=== PATIENT | male | born 1950 | race Caucasian/White ===

== ENCOUNTER 2016-09-25 20:17 | Inpatient (IN) | payer MEDICARE, OTHER ==
[~2016-09-25 20:17] MED LIST: ANTIANXIETY MED; AUGMENTIN500 MG PO; AVELOX400 MG PO; BACTRIM DS1 TA1 PO; BLOOD PRESSURE MED; CIPRO500 M1 PO; COLACE100 M1 PO; COLACE100 MG PO; CULTURELLE1 CA1 PO; EQL FISH OIL 1,1 CA1 PO; FEOSOL1 TAB PO; GLUCOPHAGE XR500 M1 PO; HUMALOG100 U/ML SQ; HUMULIN-R100 UNITS/ IM; HYDROCODON-ACE1 EA16 PO; HYDROCORTISON28.4 G1 TOP; LANTUS100 U/ML SC; LEVEMIR100 U/ML SQ; LISINOPRIL5 MG PO; LOPRESSOR50 MG PO; LOVENOX40 MG/0.4 SQ; MIRALAX17 G1 PO; MULTIPLE VITAM1 EAC1 PO; NORCO 5/3251 TA1 NG; NOVOLIN N100 UNIT/2 SC; PERCOCET 5-3251 EACH PO; PLAVIX75 MG PO; PRAVACHOL80 M1 PO; PROMETHAZINE HCL PO; PROZAC20 M1 PO; SULFAMYLON SOL250 M1 EXT; TYLENOL325 M1 PO; TYLENOL325 M2 PO; ZESTRIL20 M2 PO; ZOCOR; ZOCOR40 MG PO
[2016-09-26 06:11] LABS: BASO % 0.1 % (0-2); EOS % 0.4 % (0-7); EOSINOPHIL ABSOLUTE COUNT 0.1 tho/cmm (0.0-0.7); HCT-HEMATOCRIT 25.2 % (36.0-53.5); HGB-HEMOGLOBIN 8.3 gm/dl (13.5-17.0); IMMATURE GRANULOCYTES PERCENT 0.4 % (0-0.3); LYMPH % 9.9 % (20-45); LYMPH ABSOLUTE COUNT 2.4 tho/cmm (0.8-4.5); MCH (MEAN CORPUSCULAR HGB) 30.9 pg (28.0-32.0); MCHC MEAN CORPUSCULAR HGB CONC 32.9 % (32.0-36.0); MCV (MEAN CELL VOLUME) 93.7 fl (82.0-96.0); MONO % 6.7 % (0-12); MONOCYTE ABSOLUTE COUNT 1.6 tho/cmm (0.0-1.2); NEUTROPHIL ABSOLUTE COUNT 20.3 tho/cmm (1.6-8.0); NEUTROPHIL-AUTOMATED 20.3 tho/cmm (1.6-8.0); NEUTROPHILS % 82.5 % (40-80); PLATELET COUNT 407 tho/cmm (150-450); RED BLOOD COUNT 2.69 mil/cmm (4.40-5.70); RED CELL DISTRIBUTION WIDTH 13.3 % (12.4-16.4); WHITE BLOOD COUNT 24.6 tho/cmm (4.0-10.0)
[2016-09-26 06:12] LABS: INR 1.5 INR (0.9-1.1)
[2016-09-26 06:29] LABS: ALB/GLOB RATIO 0.3 (0.8-2.0); ALBUMIN 1.8 g/dl (3.5-5.0); ALKALINE PHOSPHATASE 169 U/L (33-138); ALT/SGPT 19 U/L (12-78); ANION GAP 17 mmol/L (0-20); AST/SGOT 27 U/L (10-40); BILIRUBIN,TOTAL 0.7 mg/dl (0.0-1.5); BLOOD UREA NITROGEN 40 mg/dl (6-24); CARBON DIOXIDE-VENOUS 22 mmol/L (22-32); CHLORIDE 101 mmol/l (96-110); CREATININE 2.08 mg/dl (0.60-1.30); GLUCOSE 167 mg/dL (70-110); POTASSIUM 4.7 mmol/L (3.7-5.1); SODIUM 135 mmol/L (135-145); eGFR VALUE FOR BLACK 38 mL/Min
[2016-09-26 06:54] LABS: ESR-ERYTHROCYTE SED RATE >140 mm/hr (0-20)
[2016-09-26 07:11] LABS: C-REACTIVE PROTEIN 26.6 mg/dl (0-0.9)
--- NOTE | 2016-09-26 09:45 | NUR ---
DR. ARANDA ROUNDING. ADDRESSED SBP. GAVE PRN HYDRALAZINE. ALSO ORDER HALDOL PRN. GAVE NEEDED
[2016-09-26 10:29] LABS: WBC MORPHOLOGY TOXIC GRANULATION
--- NOTE | 2016-09-26 16:58 | NUR ---
AGREE WITH CHRISTIANE STUDENT NURSE CHARTING.
[2016-09-27 05:14] LABS: BASO % 0.1 % (0-2); HCT-HEMATOCRIT 24.6 % (36.0-53.5); IMMATURE GRANULOCYTES ABSOLUTE 0.11 tho/cmm (0-0.03); IMMATURE GRANULOCYTES PERCENT 0.4 % (0-0.3); LYMPH % 3.6 % (20-45); MCH (MEAN CORPUSCULAR HGB) 30.8 pg (28.0-32.0); MCHC MEAN CORPUSCULAR HGB CONC 32.5 % (32.0-36.0); MCV (MEAN CELL VOLUME) 94.6 fl (82.0-96.0); MEAN PLATELET VOLUME 9.9 cmc (9.4-12.4); MONO % 5.2 % (0-12); MONOCYTE ABSOLUTE COUNT 1.5 tho/cmm (0.0-1.2); NEUTROPHIL ABSOLUTE COUNT 25.2 tho/cmm (1.6-8.0); NEUTROPHIL-AUTOMATED 25.2 tho/cmm (1.6-8.0); NEUTROPHILS % 90.7 % (40-80); PLATELET COUNT 374 tho/cmm (150-450); RED CELL DISTRIBUTION WIDTH 13.4 % (12.4-16.4); WHITE BLOOD COUNT 27.8 tho/cmm (4.0-10.0)
[2016-09-27 05:31] LABS: ANION GAP 16 mmol/L (0-20); BLOOD UREA NITROGEN 33 mg/dl (6-24); CALCIUM 7.9 mg/dl (8.5-10.5); CARBON DIOXIDE-VENOUS 22 mmol/L (22-32); CHLORIDE 102 mmol/l (96-110); CREATININE 1.66 mg/dl (0.60-1.30); GLUCOSE 237 mg/dL (70-110); POTASSIUM 4.6 mmol/L (3.7-5.1); SODIUM 135 mmol/L (135-145); eGFR VALUE FOR BLACK 49 mL/Min
--- NOTE | 2016-09-27 06:48 | NUR ---
09/26/16 NOC SHIFT AT APPROX 2315 PT TOLD NURSE HE FELT LIKE HE WANTED TO KILL HIMSELF. PT DENIED HAVING A PLAN TO KILL HIMSELF BUT MADE IT CLEAR THAT HE FELT HE WAS THINKING ABOUT ENDING HIS OWN LIFE. IMS PAGED, SUICIDE PRECAUTIONS STARTED, PLAN TO TRANSFER TO CCU PUT IN PLACE. RODDY RAMIREZ TOLD NURSE SHE WOULD COME TO PCU TO ASSESS PT TO BE CERTAIN THIS WAS THE CORRECT DECISION FOR THIS TIME. UPON FURTHER ASSESSMENT AND DISCUSSION, PT BECAME MORE CALM AND BEGAN SPEAKING ABOUT ALL HIS FRUSTRATIONS AT THE CURRENT TIME WHEN ASKED IF HE WANTED TO HARM HIMSELF. 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 ALEC DECIDED TO KEEP PT ON PCU, AND WROTE SPECIFIC ORDERS FOR HOW TO MONITOR THE PT MORE CLOSELY AND TREAT HIS INSOMNIA. THE PT HAS SINCE BEEN MORE RELAXED AND ABLE TO SLEEP FOR APPROXIMATELY 2 HOURS.
[2016-09-28 05:45] LABS: BASO % 0.1 % (0-2); EOS % 0.1 % (0-7); HCT-HEMATOCRIT 24.1 % (36.0-53.5); HGB-HEMOGLOBIN 7.7 gm/dl (13.5-17.0); IMMATURE GRANULOCYTES ABSOLUTE 0.07 tho/cmm (0-0.03); IMMATURE GRANULOCYTES PERCENT 0.3 % (0-0.3); LYMPH ABSOLUTE COUNT 1.4 tho/cmm (0.8-4.5); MCH (MEAN CORPUSCULAR HGB) 30.4 pg (28.0-32.0); MCV (MEAN CELL VOLUME) 95.3 fl (82.0-96.0); MEAN PLATELET VOLUME 10.1 cmc (9.4-12.4); MONO % 5.5 % (0-12); MONOCYTE ABSOLUTE COUNT 1.3 tho/cmm (0.0-1.2); PLATELET COUNT 347 tho/cmm (150-450); RED BLOOD COUNT 2.53 mil/cmm (4.40-5.70); RED CELL DISTRIBUTION WIDTH 13.6 % (12.4-16.4); WHITE BLOOD COUNT 23.8 tho/cmm (4.0-10.0)
[2016-09-28 06:01] LABS: ANION GAP 13 mmol/L (0-20); BLOOD UREA NITROGEN 31 mg/dl (6-24); CALCIUM 8.1 mg/dl (8.5-10.5); CARBON DIOXIDE-VENOUS 24 mmol/L (22-32); CHLORIDE 107 mmol/l (96-110); CREATININE 1.56 mg/dl (0.60-1.30); POTASSIUM 4.3 mmol/L (3.7-5.1); SODIUM 140 mmol/L (135-145); eGFR VALUE FOR BLACK 53 mL/Min
[2016-09-28 06:05] LABS: GLUCOSE 56 mg/dL (70-110)
[2016-09-29 04:51] LABS: ANION GAP 13 mmol/L (0-20); BLOOD UREA NITROGEN 31 mg/dl (6-24); CALCIUM 7.6 mg/dl (8.5-10.5); CARBON DIOXIDE-VENOUS 23 mmol/L (22-32); CHLORIDE 107 mmol/l (96-110); CREATININE 1.51 mg/dl (0.60-1.30); POTASSIUM 4.5 mmol/L (3.7-5.1); SODIUM 138 mmol/L (135-145); eGFR VALUE FOR BLACK 55 mL/Min
[2016-09-29 05:11] LABS: BASO % 0.2 % (0-2); EOS % 0.5 % (0-7); EOSINOPHIL ABSOLUTE COUNT 0.1 tho/cmm (0.0-0.7); HGB-HEMOGLOBIN 7.3 gm/dl (13.5-17.0); IMMATURE GRANULOCYTES ABSOLUTE 0.08 tho/cmm (0-0.03); IMMATURE GRANULOCYTES PERCENT 0.4 % (0-0.3); LYMPH % 7.4 % (20-45); LYMPH ABSOLUTE COUNT 1.5 tho/cmm (0.8-4.5); MCH (MEAN CORPUSCULAR HGB) 30.8 pg (28.0-32.0); MCHC MEAN CORPUSCULAR HGB CONC 32.6 % (32.0-36.0); MCV (MEAN CELL VOLUME) 94.5 fl (82.0-96.0); MEAN PLATELET VOLUME 9.6 cmc (9.4-12.4); MONO % 7.5 % (0-12); MONOCYTE ABSOLUTE COUNT 1.5 tho/cmm (0.0-1.2); NEUTROPHIL ABSOLUTE COUNT 16.8 tho/cmm (1.6-8.0); NEUTROPHIL-AUTOMATED 16.8 tho/cmm (1.6-8.0); PLATELET COUNT 296 tho/cmm (150-450); RED BLOOD COUNT 2.37 mil/cmm (4.40-5.70); RED CELL DISTRIBUTION WIDTH 13.8 % (12.4-16.4)
[2016-09-29 05:18] LABS: GLUCOSE 151 mg/dL (70-110)
[2016-09-29 05:22] LABS: HCT-HEMATOCRIT 22.4 % (36.0-53.5)
[2016-09-30 05:46] LABS: BASO % 0.3 % (0-2); BASO ABSOLUTE COUNT 0.1 tho/cmm (0.0-0.2); EOS % 0.6 % (0-7); EOSINOPHIL ABSOLUTE COUNT 0.1 tho/cmm (0.0-0.7); HGB-HEMOGLOBIN 6.9 gm/dl (13.5-17.0); IMMATURE GRANULOCYTES ABSOLUTE 0.06 tho/cmm (0-0.03); IMMATURE GRANULOCYTES PERCENT 0.4 % (0-0.3); LYMPH % 10.3 % (20-45); LYMPH ABSOLUTE COUNT 1.7 tho/cmm (0.8-4.5); MCH (MEAN CORPUSCULAR HGB) 30.8 pg (28.0-32.0); MCV (MEAN CELL VOLUME) 95.5 fl (82.0-96.0); MEAN PLATELET VOLUME 9.5 cmc (9.4-12.4); MONO % 9.1 % (0-12); MONOCYTE ABSOLUTE COUNT 1.5 tho/cmm (0.0-1.2); NEUTROPHIL ABSOLUTE COUNT 13.1 tho/cmm (1.6-8.0); NEUTROPHIL-AUTOMATED 13.1 tho/cmm (1.6-8.0); NEUTROPHILS % 79.3 % (40-80); PLATELET COUNT 256 tho/cmm (150-450); RED BLOOD COUNT 2.24 mil/cmm (4.40-5.70); RED CELL DISTRIBUTION WIDTH 13.6 % (12.4-16.4); WHITE BLOOD COUNT 16.6 tho/cmm (4.0-10.0)
[2016-09-30 05:49] LABS: HCT-HEMATOCRIT 21.4 % (36.0-53.5); MCHC MEAN CORPUSCULAR HGB CONC 32.2 % (32.0-36.0)
[2016-10-01 04:34] LABS: BASO % 0.3 % (0-2); BASO ABSOLUTE COUNT 0.1 tho/cmm (0.0-0.2); EOS % 0.7 % (0-7); EOSINOPHIL ABSOLUTE COUNT 0.1 tho/cmm (0.0-0.7); HGB-HEMOGLOBIN 7.5 gm/dl (13.5-17.0); IMMATURE GRANULOCYTES ABSOLUTE 0.13 tho/cmm (0-0.03); IMMATURE GRANULOCYTES PERCENT 0.8 % (0-0.3); LYMPH % 10.8 % (20-45); LYMPH ABSOLUTE COUNT 1.8 tho/cmm (0.8-4.5); MCH (MEAN CORPUSCULAR HGB) 30.6 pg (28.0-32.0); MCHC MEAN CORPUSCULAR HGB CONC 32.3 % (32.0-36.0); MCV (MEAN CELL VOLUME) 94.7 fl (82.0-96.0); MEAN PLATELET VOLUME 9.6 cmc (9.4-12.4); MONO % 11.7 % (0-12); MONOCYTE ABSOLUTE COUNT 1.9 tho/cmm (0.0-1.2); NEUTROPHIL ABSOLUTE COUNT 12.6 tho/cmm (1.6-8.0); NEUTROPHIL-AUTOMATED 12.6 tho/cmm (1.6-8.0); NEUTROPHILS % 75.7 % (40-80); PLATELET COUNT 259 tho/cmm (150-450); RED BLOOD COUNT 2.45 mil/cmm (4.40-5.70); WHITE BLOOD COUNT 16.6 tho/cmm (4.0-10.0)
[2016-10-01 04:41] LABS: ANION GAP 10 mmol/L (0-20); BLOOD UREA NITROGEN 24 mg/dl (6-24); C-REACTIVE PROTEIN 14.2 mg/dl (0-0.9); CALCIUM 7.4 mg/dl (8.5-10.5); CARBON DIOXIDE-VENOUS 24 mmol/L (22-32); CHLORIDE 108 mmol/l (96-110); CREATININE 1.33 mg/dl (0.60-1.30); GLUCOSE 112 mg/dL (70-110); POTASSIUM 4.3 mmol/L (3.7-5.1); SODIUM 138 mmol/L (135-145); eGFR VALUE FOR BLACK 65 mL/Min
[2016-10-01 04:58] LABS: HCT-HEMATOCRIT 23.2 % (36.0-53.5)
[2016-10-03 04:06] LABS: INR 1.2 INR (0.9-1.1); PROTHROMBIN TIME 14.6 SECONDS (9.0-13.6)
[2016-10-03 04:27] LABS: ANION GAP 11 mmol/L (0-20); BLOOD UREA NITROGEN 23 mg/dl (6-24); CALCIUM 7.6 mg/dl (8.5-10.5); CARBON DIOXIDE-VENOUS 25 mmol/L (22-32); CHLORIDE 107 mmol/l (96-110); CREATININE 1.53 mg/dl (0.60-1.30); GLUCOSE 59 mg/dL (70-110); POTASSIUM 4.2 mmol/L (3.7-5.1); SODIUM 139 mmol/L (135-145); eGFR VALUE FOR BLACK 54 mL/Min
[2016-10-03 09:16] LABS: BODY FLUID TYPE LEFT SHOULDER
[2016-10-03 18:01] LABS: BASO % 0.3 % (0-2); EOS % 2.9 % (0-7); EOSINOPHIL ABSOLUTE COUNT 0.4 tho/cmm (0.0-0.7); HCT-HEMATOCRIT 24.3 % (36.0-53.5); HGB-HEMOGLOBIN 7.8 gm/dl (13.5-17.0); IMMATURE GRANULOCYTES ABSOLUTE 0.15 tho/cmm (0-0.03); LYMPH ABSOLUTE COUNT 2.1 tho/cmm (0.8-4.5); MCH (MEAN CORPUSCULAR HGB) 30.6 pg (28.0-32.0); MCHC MEAN CORPUSCULAR HGB CONC 32.1 % (32.0-36.0); MCV (MEAN CELL VOLUME) 95.3 fl (82.0-96.0); MEAN PLATELET VOLUME 9.3 cmc (9.4-12.4); MONO % 9.9 % (0-12); MONOCYTE ABSOLUTE COUNT 1.5 tho/cmm (0.0-1.2); NEUTROPHIL ABSOLUTE COUNT 10.8 tho/cmm (1.6-8.0); NEUTROPHIL-AUTOMATED 10.8 tho/cmm (1.6-8.0); NEUTROPHILS % 71.9 % (40-80); PLATELET COUNT 369 tho/cmm (150-450); RED BLOOD COUNT 2.55 mil/cmm (4.40-5.70); RED CELL DISTRIBUTION WIDTH 13.7 % (12.4-16.4)
[2016-10-03 18:06] LABS: INR 1.2 INR (0.9-1.1); PROTHROMBIN TIME 14.5 SECONDS (9.0-13.6)
[2016-10-04 05:15] LABS: BASO % 0.2 % (0-2); HCT-HEMATOCRIT 24.9 % (36.0-53.5); IMMATURE GRANULOCYTES ABSOLUTE 0.13 tho/cmm (0-0.03); IMMATURE GRANULOCYTES PERCENT 0.9 % (0-0.3); LYMPH ABSOLUTE COUNT 1.3 tho/cmm (0.8-4.5); MCH (MEAN CORPUSCULAR HGB) 30.5 pg (28.0-32.0); MCHC MEAN CORPUSCULAR HGB CONC 32.1 % (32.0-36.0); MEAN PLATELET VOLUME 9.7 cmc (9.4-12.4); MONOCYTE ABSOLUTE COUNT 0.6 tho/cmm (0.0-1.2); NEUTROPHIL ABSOLUTE COUNT 12.8 tho/cmm (1.6-8.0); NEUTROPHIL-AUTOMATED 12.8 tho/cmm (1.6-8.0); NEUTROPHILS % 85.9 % (40-80); PLATELET COUNT 360 tho/cmm (150-450); RED BLOOD COUNT 2.62 mil/cmm (4.40-5.70); RED CELL DISTRIBUTION WIDTH 13.6 % (12.4-16.4); WHITE BLOOD COUNT 14.9 tho/cmm (4.0-10.0)
[2016-10-04 05:24] LABS: ANION GAP 10 mmol/L (0-20); BLOOD UREA NITROGEN 19 mg/dl (6-24); C-REACTIVE PROTEIN 13.7 mg/dl (0-0.9); CALCIUM 7.7 mg/dl (8.5-10.5); CARBON DIOXIDE-VENOUS 27 mmol/L (22-32); CHLORIDE 103 mmol/l (96-110); CREATININE 1.42 mg/dl (0.60-1.30); POTASSIUM 4.9 mmol/L (3.7-5.1); SODIUM 135 mmol/L (135-145); eGFR VALUE FOR BLACK 60 mL/Min
[2016-10-04 05:39] LABS: GLUCOSE 209 mg/dL (70-110)
[2016-10-05 05:46] LABS: BASO % 0.3 % (0-2); EOS % 1.6 % (0-7); EOSINOPHIL ABSOLUTE COUNT 0.2 tho/cmm (0.0-0.7); HGB-HEMOGLOBIN 7.3 gm/dl (13.5-17.0); IMMATURE GRANULOCYTES PERCENT 0.7 % (0-0.3); LYMPH % 12.2 % (20-45); LYMPH ABSOLUTE COUNT 1.7 tho/cmm (0.8-4.5); MCH (MEAN CORPUSCULAR HGB) 30.3 pg (28.0-32.0); MCHC MEAN CORPUSCULAR HGB CONC 31.6 % (32.0-36.0); MCV (MEAN CELL VOLUME) 95.9 fl (82.0-96.0); MEAN PLATELET VOLUME 9.6 cmc (9.4-12.4); MONO % 8.8 % (0-12); MONOCYTE ABSOLUTE COUNT 1.2 tho/cmm (0.0-1.2); NEUTROPHIL ABSOLUTE COUNT 10.5 tho/cmm (1.6-8.0); NEUTROPHIL-AUTOMATED 10.5 tho/cmm (1.6-8.0); NEUTROPHILS % 76.4 % (40-80); PLATELET COUNT 380 tho/cmm (150-450); RED BLOOD COUNT 2.41 mil/cmm (4.40-5.70); RED CELL DISTRIBUTION WIDTH 13.7 % (12.4-16.4); WHITE BLOOD COUNT 13.8 tho/cmm (4.0-10.0)
[2016-10-05 05:48] LABS: HCT-HEMATOCRIT 23.1 % (36.0-53.5)
[2016-10-05 05:58] LABS: ANION GAP 12 mmol/L (0-20); BLOOD UREA NITROGEN 23 mg/dl (6-24); CALCIUM 7.6 mg/dl (8.5-10.5); CARBON DIOXIDE-VENOUS 26 mmol/L (22-32); CHLORIDE 107 mmol/l (96-110); CREATININE 1.45 mg/dl (0.60-1.30); POTASSIUM 4.4 mmol/L (3.7-5.1); SODIUM 141 mmol/L (135-145); eGFR VALUE FOR BLACK 58 mL/Min
[2016-10-05 06:03] LABS: GLUCOSE 97 mg/dL (70-110)
[2016-10-06 03:54] LABS: BASO % 0.5 % (0-2); BASO ABSOLUTE COUNT 0.1 tho/cmm (0.0-0.2); EOSINOPHIL ABSOLUTE COUNT 0.2 tho/cmm (0.0-0.7); HGB-HEMOGLOBIN 7.3 gm/dl (13.5-17.0); IMMATURE GRANULOCYTES ABSOLUTE 0.08 tho/cmm (0-0.03); IMMATURE GRANULOCYTES PERCENT 0.7 % (0-0.3); LYMPH % 18.9 % (20-45); LYMPH ABSOLUTE COUNT 2.2 tho/cmm (0.8-4.5); MCH (MEAN CORPUSCULAR HGB) 30.5 pg (28.0-32.0); MCHC MEAN CORPUSCULAR HGB CONC 31.7 % (32.0-36.0); MCV (MEAN CELL VOLUME) 96.2 fl (82.0-96.0); MEAN PLATELET VOLUME 9.7 cmc (9.4-12.4); MONO % 10.3 % (0-12); MONOCYTE ABSOLUTE COUNT 1.2 tho/cmm (0.0-1.2); NEUTROPHIL ABSOLUTE COUNT 7.9 tho/cmm (1.6-8.0); NEUTROPHIL-AUTOMATED 7.9 tho/cmm (1.6-8.0); NEUTROPHILS % 67.6 % (40-80); PLATELET COUNT 387 tho/cmm (150-450); RED BLOOD COUNT 2.39 mil/cmm (4.40-5.70); RED CELL DISTRIBUTION WIDTH 13.8 % (12.4-16.4); WHITE BLOOD COUNT 11.7 tho/cmm (4.0-10.0)
[2016-10-06 04:03] LABS: ALBUMIN 1.6 g/dl (3.5-5.0); ANION GAP 8 mmol/L (0-20); BLOOD UREA NITROGEN 20 mg/dl (6-24); CALCIUM 7.6 mg/dl (8.5-10.5); CARBON DIOXIDE-VENOUS 30 mmol/L (22-32); CHLORIDE 108 mmol/l (96-110); CREATININE 1.33 mg/dl (0.60-1.30); PHOSPHOROUS 3.4 mg/dl (2.5-4.9); SODIUM 142 mmol/L (135-145); eGFR VALUE FOR BLACK 65 mL/Min
[2016-10-06 04:04] LABS: C-REACTIVE PROTEIN 6.2 mg/dl (0-0.9)
[2016-10-06 04:06] LABS: GLUCOSE 53 mg/dL (70-110)
[2016-10-07 04:35] LABS: BASO % 0.5 % (0-2); BASO ABSOLUTE COUNT 0.1 tho/cmm (0.0-0.2); EOS % 2.9 % (0-7); EOSINOPHIL ABSOLUTE COUNT 0.4 tho/cmm (0.0-0.7); HGB-HEMOGLOBIN 6.5 gm/dl (13.5-17.0); IMMATURE GRANULOCYTES ABSOLUTE 0.07 tho/cmm (0-0.03); IMMATURE GRANULOCYTES PERCENT 0.5 % (0-0.3); LYMPH % 15.3 % (20-45); MCH (MEAN CORPUSCULAR HGB) 30.7 pg (28.0-32.0); MCV (MEAN CELL VOLUME) 96.2 fl (82.0-96.0); MEAN PLATELET VOLUME 9.6 cmc (9.4-12.4); MONO % 9.3 % (0-12); MONOCYTE ABSOLUTE COUNT 1.2 tho/cmm (0.0-1.2); NEUTROPHIL ABSOLUTE COUNT 9.4 tho/cmm (1.6-8.0); NEUTROPHIL-AUTOMATED 9.4 tho/cmm (1.6-8.0); NEUTROPHILS % 71.5 % (40-80); PLATELET COUNT 392 tho/cmm (150-450); RED BLOOD COUNT 2.12 mil/cmm (4.40-5.70); RED CELL DISTRIBUTION WIDTH 13.9 % (12.4-16.4); WHITE BLOOD COUNT 13.1 tho/cmm (4.0-10.0)
[2016-10-07 04:39] LABS: ALBUMIN 1.6 g/dl (3.5-5.0); ANION GAP 10 mmol/L (0-20); BLOOD UREA NITROGEN 16 mg/dl (6-24); C-REACTIVE PROTEIN 8.7 mg/dl (0-0.9); CALCIUM 7.4 mg/dl (8.5-10.5); CARBON DIOXIDE-VENOUS 29 mmol/L (22-32); CHLORIDE 104 mmol/l (96-110); CREATININE 1.32 mg/dl (0.60-1.30); HCT-HEMATOCRIT 20.4 % (36.0-53.5); MCHC MEAN CORPUSCULAR HGB CONC 31.9 % (32.0-36.0); PHOSPHOROUS 3.2 mg/dl (2.5-4.9); POTASSIUM 4.6 mmol/L (3.7-5.1); SODIUM 138 mmol/L (135-145); eGFR VALUE FOR BLACK 65 mL/Min
[2016-10-07 04:57] LABS: GLUCOSE 154 mg/dL (70-110)
[2016-10-08 06:32] LABS: BASO % 0.4 % (0-2); EOS % 4.2 % (0-7); EOSINOPHIL ABSOLUTE COUNT 0.5 tho/cmm (0.0-0.7); HGB-HEMOGLOBIN 6.1 gm/dl (13.5-17.0); IMMATURE GRANULOCYTES ABSOLUTE 0.07 tho/cmm (0-0.03); IMMATURE GRANULOCYTES PERCENT 0.6 % (0-0.3); LYMPH ABSOLUTE COUNT 2.2 tho/cmm (0.8-4.5); MCH (MEAN CORPUSCULAR HGB) 30.8 pg (28.0-32.0); MCV (MEAN CELL VOLUME) 96.5 fl (82.0-96.0); MEAN PLATELET VOLUME 9.6 cmc (9.4-12.4); MONOCYTE ABSOLUTE COUNT 1.1 tho/cmm (0.0-1.2); NEUTROPHIL ABSOLUTE COUNT 7.4 tho/cmm (1.6-8.0); NEUTROPHIL-AUTOMATED 7.4 tho/cmm (1.6-8.0); NEUTROPHILS % 65.8 % (40-80); PLATELET COUNT 298 tho/cmm (150-450); RED BLOOD COUNT 1.98 mil/cmm (4.40-5.70); RED CELL DISTRIBUTION WIDTH 13.9 % (12.4-16.4); WHITE BLOOD COUNT 11.3 tho/cmm (4.0-10.0)
[2016-10-08 06:38] LABS: HCT-HEMATOCRIT 19.1 % (36.0-53.5); MCHC MEAN CORPUSCULAR HGB CONC 31.9 % (32.0-36.0)
[2016-10-08 07:00] LABS: ALBUMIN 1.5 g/dl (3.5-5.0); ANION GAP 9 mmol/L (0-20); BLOOD UREA NITROGEN 13 mg/dl (6-24); C-REACTIVE PROTEIN 11.6 mg/dl (0-0.9); CALCIUM 7.5 mg/dl (8.5-10.5); CARBON DIOXIDE-VENOUS 30 mmol/L (22-32); CHLORIDE 103 mmol/l (96-110); CREATININE 1.26 mg/dl (0.60-1.30); GLUCOSE 117 mg/dL (70-110); PHOSPHOROUS 2.6 mg/dl (2.5-4.9); SODIUM 138 mmol/L (135-145); eGFR VALUE FOR BLACK 69 mL/Min
[2016-10-09 05:26] LABS: BASO % 0.4 % (0-2); BASO ABSOLUTE COUNT 0.1 tho/cmm (0.0-0.2); EOS % 3.6 % (0-7); EOSINOPHIL ABSOLUTE COUNT 0.5 tho/cmm (0.0-0.7); IMMATURE GRANULOCYTES ABSOLUTE 0.08 tho/cmm (0-0.03); IMMATURE GRANULOCYTES PERCENT 0.6 % (0-0.3); LYMPH % 22.7 % (20-45); MCV (MEAN CELL VOLUME) 92.6 fl (82.0-96.0); MEAN PLATELET VOLUME 9.5 cmc (9.4-12.4); MONO % 9.8 % (0-12); MONOCYTE ABSOLUTE COUNT 1.3 tho/cmm (0.0-1.2); NEUTROPHIL ABSOLUTE COUNT 8.4 tho/cmm (1.6-8.0); NEUTROPHIL-AUTOMATED 8.4 tho/cmm (1.6-8.0); NEUTROPHILS % 62.9 % (40-80); RED BLOOD COUNT 2.72 mil/cmm (4.40-5.70); RED CELL DISTRIBUTION WIDTH 15.4 % (12.4-16.4); WHITE BLOOD COUNT 13.3 tho/cmm (4.0-10.0)
[2016-10-09 05:29] LABS: HCT-HEMATOCRIT 25.2 % (36.0-53.5); HGB-HEMOGLOBIN 8.1 gm/dl (13.5-17.0); MCH (MEAN CORPUSCULAR HGB) 29.7 pg (28.0-32.0); MCHC MEAN CORPUSCULAR HGB CONC 32.1 % (32.0-36.0); PLATELET COUNT 472 tho/cmm (150-450)
[2016-10-10 05:31] LABS: BASO % 0.4 % (0-2); BASO ABSOLUTE COUNT 0.1 tho/cmm (0.0-0.2); EOS % 4.1 % (0-7); EOSINOPHIL ABSOLUTE COUNT 0.5 tho/cmm (0.0-0.7); HGB-HEMOGLOBIN 8.4 gm/dl (13.5-17.0); IMMATURE GRANULOCYTES ABSOLUTE 0.08 tho/cmm (0-0.03); IMMATURE GRANULOCYTES PERCENT 0.6 % (0-0.3); LYMPH % 18.6 % (20-45); LYMPH ABSOLUTE COUNT 2.4 tho/cmm (0.8-4.5); MCH (MEAN CORPUSCULAR HGB) 29.9 pg (28.0-32.0); MCHC MEAN CORPUSCULAR HGB CONC 32.3 % (32.0-36.0); MCV (MEAN CELL VOLUME) 92.5 fl (82.0-96.0); MEAN PLATELET VOLUME 9.4 cmc (9.4-12.4); MONO % 9.3 % (0-12); MONOCYTE ABSOLUTE COUNT 1.2 tho/cmm (0.0-1.2); NEUTROPHIL ABSOLUTE COUNT 8.7 tho/cmm (1.6-8.0); NEUTROPHIL-AUTOMATED 8.7 tho/cmm (1.6-8.0); PLATELET COUNT 484 tho/cmm (150-450); RED BLOOD COUNT 2.81 mil/cmm (4.40-5.70); RED CELL DISTRIBUTION WIDTH 14.7 % (12.4-16.4)
[2016-10-11 05:46] LABS: C-REACTIVE PROTEIN 9.2 mg/dl (0-0.9)
[2016-10-11 06:00] LABS: PROCALCITONIN 0.12 ng/ml (0.05-0.09)
[2016-10-11] MEDS ORDERED: NORVASC5 M2 PO (11:59)
[2016-10-11] MEDS ORDERED: PERCOCET 5-3251 EACH PO (12:01)
[2016-10-11] MEDS ORDERED: NEURONTIN100 M1 PO (12:02)
[2016-10-11] MEDS ORDERED: TYLENOL325 M2 PO (12:02)
[2016-10-11] MEDS ORDERED: COLACE100 M1 PO (12:03)
[2016-10-11] MEDS ORDERED: MIRALAX17 G2 PO (12:04)
[2016-10-11] MEDS ORDERED: NOVOLOG100 UNITS/ (12:05)
[2016-10-11] MEDS ORDERED: MELATONIN5 M5 PO (12:06)
[2016-10-11] MEDS ORDERED: CEFTRIAXON2000 MG/VI IV (12:07)
[2016-11-15] MEDS ORDERED: LEVOFLOXACIN750 M1 PO (09:04)
[2016-11-15] MEDS ORDERED: GLUCOPHAGE500 M3 PO (09:05)
[2016-11-15] MEDS ORDERED: LANTUS100 UNITS/ SC (14:28)
[2016-11-15] MEDS ORDERED: BOOST237 ML PO (14:29)
[2016-12-16] MEDS ORDERED: AUGMENTIN 875-1 EAC2 PO (11:09)
[2016-12-16] MEDS ORDERED: BACTRIM DS TAB1 EAC2 PO (11:09)
[2016-12-16] MEDS ORDERED: NOVOLOG100 UNITS/ SC (11:10)
[2016-12-16] MEDS ORDERED: LOVENOX40 MG/0.1 SC (11:10)
[2016-12-16] MEDS ORDERED: VITAMIN D31000 UNI3 PO (11:11)
[2016-12-16] MEDS ORDERED: PROTONIX40 M2 PO (11:11)
[2016-12-16] MEDS ORDERED: PRAVACHOL80 M1 PO (11:11)
[2016-12-16] MEDS ORDERED: NOVOLIN N100 UNIT/2 SC (11:12)
[2017-01-29] MEDS ORDERED: GLUCOPHAGE XR500 M1 PO (06:30)
[2017-04-21] MEDS ORDERED: PROZAC20 M3 PO (09:46)
== END 2016-10-11 17:48 | DRG 314 ==
LOC: PCUB 20:17 → PACU 10-03 20:12 → PCUB 10-03 21:32 → 5EB 10-04 14:55 → ORW 10-06 09:21 → PCUA 10-06 13:30
PROVIDERS: Anesthesiology; Family Medicine; Internal Medicine; Internal Medicine Infectious Disease; Surgery Vascular Surgery; ADMIT Internal Medicine
PROC: 02HV33Z Insertion of Infusion Device into Superior Vena Cava, Percutaneous Approach (ICD-10-PCS; 2016-09-25)
PROC: B548ZZA Ultrasonography of Superior Vena Cava, Guidance (ICD-10-PCS; 2016-09-25)
PROC: 0X920ZZ Drainage of Right Shoulder Region, Open Approach (ICD-10-PCS; 2016-10-03)
PROC: B410YZZ Fluoroscopy of Abdominal Aorta using Other Contrast (ICD-10-PCS; 2016-10-04)
PROC: 0J9Q0ZX Drainage of Right Foot Subcutaneous Tissue and Fascia, Open Approach, Diagnostic (ICD-10-PCS; principal; 2016-10-06)
PROC: 30233N1 Transfusion of Nonautologous Red Blood Cells into Peripheral Vein, Percutaneous Approach (ICD-10-PCS; 2016-10-08)
DX: T82.7XXA Infection and inflammatory reaction due to other cardiac and vascular devices, implants and grafts, initial encounter (principal); A40.9 Streptococcal sepsis, unspecified; N18.3 Chronic kidney disease, stage 3 (moderate); R65.21 Severe sepsis with septic shock; N17.9 Acute kidney failure, unspecified; M00.812 Arthritis due to other bacteria, left shoulder; E44.0 Moderate protein-calorie malnutrition; S75.001A Unspecified injury of femoral artery, right leg, initial encounter; D62 Acute posthemorrhagic anemia; L03.115 Cellulitis of right lower limb; E11.21 Type 2 diabetes mellitus with diabetic nephropathy; I12.9 Hypertensive chronic kidney disease with stage 1 through stage 4 chronic kidney disease, or unspecified chronic kidney disease; I73.9 Peripheral vascular disease, unspecified; M75.102 Unspecified rotator cuff tear or rupture of left shoulder, not specified as traumatic; Z87.2 Personal history of diseases of the skin and subcutaneous tissue; D63.8 Anemia in other chronic diseases classified elsewhere; Z89.511 Acquired absence of right leg below knee; Z91.19 Patient's noncompliance with other medical treatment and regimen; Z87.891 Personal history of nicotine dependence; T36.0X5A Adverse effect of penicillins, initial encounter; E11.40 Type 2 diabetes mellitus with diabetic neuropathy, unspecified; I72.4 Aneurysm of artery of lower extremity
CPT/HCPCS: A9521; C1751; C1769; J0360; J0690; J0696; J1170; J1580; J1630; J1644; J1650; J1815; J1956; J2060; J2250; J2270; J3010; J3370; J7030; J7050; P9016; Q9967

== ENCOUNTER 2016-11-16 07:55 | Day surgery (SDC) | payer MEDICARE, OTHER ==
[~2016-11-16 07:55] MED LIST changes: +BOOST237 ML PO; +CEFTRIAXON2000 MG/VI IV; +GLUCOPHAGE500 M3 PO; +LANTUS100 UNITS/ SC; +LEVOFLOXACIN750 M1 PO; +MELATONIN5 M5 PO; +MIRALAX17 G2 PO; +NEURONTIN100 M1 PO; +NORVASC5 M2 PO; +NOVOLOG100 UNITS/
[2016-11-16 08:59] LABS: BASO % 0.3 % (0-2); EOS % 1.2 % (0-7); EOSINOPHIL ABSOLUTE COUNT 0.2 tho/cmm (0.0-0.7); HCT-HEMATOCRIT 24.8 % (36.0-53.5); IMMATURE GRANULOCYTES ABSOLUTE 0.04 tho/cmm (0-0.03); IMMATURE GRANULOCYTES PERCENT 0.3 % (0-0.3); LYMPH % 28.5 % (20-45); LYMPH ABSOLUTE COUNT 3.4 tho/cmm (0.8-4.5); MCH (MEAN CORPUSCULAR HGB) 28.6 pg (28.0-32.0); MCHC MEAN CORPUSCULAR HGB CONC 32.3 % (32.0-36.0); MCV (MEAN CELL VOLUME) 88.6 fl (82.0-96.0); MEAN PLATELET VOLUME 9.4 cmc (9.4-12.4); MONO % 8.8 % (0-12); MONOCYTE ABSOLUTE COUNT 1.1 tho/cmm (0.0-1.2); NEUTROPHIL ABSOLUTE COUNT 7.4 tho/cmm (1.6-8.0); NEUTROPHIL-AUTOMATED 7.4 tho/cmm (1.6-8.0); NEUTROPHILS % 60.9 % (40-80); PLATELET COUNT 329 tho/cmm (150-450); RED CELL DISTRIBUTION WIDTH 13.6 % (12.4-16.4); WHITE BLOOD COUNT 12.1 tho/cmm (4.0-10.0)
[2016-11-16 09:09] LABS: ANION GAP 14 mmol/L (0-20); BLOOD UREA NITROGEN 26 mg/dl (6-24); CALCIUM 8.5 mg/dl (8.5-10.5); CARBON DIOXIDE-VENOUS 26 mmol/L (22-32); CHLORIDE 104 mmol/l (96-110); CREATININE 1.75 mg/dl (0.60-1.30); GLUCOSE 88 mg/dL (70-110); POTASSIUM 3.9 mmol/L (3.7-5.1); SODIUM 140 mmol/L (135-145); eGFR VALUE FOR BLACK 46 mL/Min
[2016-11-17] MEDS ORDERED: HYDROCODON-ACE1 EA16 PO (09:45)
[2016-12-16] MEDS ORDERED: AUGMENTIN 875-1 EAC2 PO (11:09)
[2016-12-16] MEDS ORDERED: BACTRIM DS TAB1 EAC2 PO (11:09)
[2016-12-16] MEDS ORDERED: LOVENOX40 MG/0.1 SC (11:10)
[2016-12-16] MEDS ORDERED: NOVOLOG100 UNITS/ SC (11:10)
[2016-12-16] MEDS ORDERED: PRAVACHOL80 M1 PO (11:11)
[2016-12-16] MEDS ORDERED: PROTONIX40 M2 PO (11:11)
[2016-12-16] MEDS ORDERED: VITAMIN D31000 UNI3 PO (11:11)
[2016-12-16] MEDS ORDERED: NOVOLIN N100 UNIT/2 SC (11:12)
[2017-01-29] MEDS ORDERED: GLUCOPHAGE XR500 M1 PO (06:30)
[2017-04-21] MEDS ORDERED: PROZAC20 M3 PO (09:46)
== END 2016-11-17 10:40 ==
LOC: SRG 07:55 → SHSB 07:56 → BURN 13:00
PROVIDERS: Anesthesiology; Surgery
PROC: 0HRKX74 Replacement of Right Lower Leg Skin with Autologous Tissue Substitute, Partial Thickness, External Approach (ICD-10-PCS; principal; 2016-11-16)
PROC: 0JBL0ZZ Excision of Right Upper Leg Subcutaneous Tissue and Fascia, Open Approach (ICD-10-PCS; 2016-11-16)
DX: L89.899 Pressure ulcer of other site, unspecified stage (principal); T81.89XA Other complications of procedures, not elsewhere classified, initial encounter; E11.42 Type 2 diabetes mellitus with diabetic polyneuropathy; Z87.891 Personal history of nicotine dependence; Z86.19 Personal history of other infectious and parasitic diseases; Z88.1 Allergy status to other antibiotic agents; Z98.890 Other specified postprocedural states; Z88.8 Allergy status to other drugs, medicaments and biological substances; Z79.2 Long term (current) use of antibiotics; Y83.8 Other surgical procedures as the cause of abnormal reaction of the patient, or of later complication, without mention of misadventure at the time of the procedure
CPT/HCPCS: J0171; J1580; J1815; J3370; J7030

== ENCOUNTER 2016-12-02 09:26 | Inpatient (IN) | payer MEDICARE, OTHER ==
[2016-12-03 10:36] LABS: BASO % 0.2 % (0-2); EOS % 6.5 % (0-7); EOSINOPHIL ABSOLUTE COUNT 0.7 tho/cmm (0.0-0.7); HCT-HEMATOCRIT 23.5 % (36.0-53.5); HGB-HEMOGLOBIN 7.4 gm/dl (13.5-17.0); IMMATURE GRANULOCYTES ABSOLUTE 0.03 tho/cmm (0-0.03); IMMATURE GRANULOCYTES PERCENT 0.3 % (0-0.3); LYMPH % 25.5 % (20-45); LYMPH ABSOLUTE COUNT 2.6 tho/cmm (0.8-4.5); MCH (MEAN CORPUSCULAR HGB) 27.2 pg (28.0-32.0); MCHC MEAN CORPUSCULAR HGB CONC 31.5 % (32.0-36.0); MCV (MEAN CELL VOLUME) 86.4 fl (82.0-96.0); MEAN PLATELET VOLUME 9.2 cmc (9.4-12.4); MONO % 7.4 % (0-12); MONOCYTE ABSOLUTE COUNT 0.8 tho/cmm (0.0-1.2); NEUTROPHIL ABSOLUTE COUNT 6.2 tho/cmm (1.6-8.0); NEUTROPHIL-AUTOMATED 6.2 tho/cmm (1.6-8.0); NEUTROPHILS % 60.1 % (40-80); PLATELET COUNT 338 tho/cmm (150-450); RED BLOOD COUNT 2.72 mil/cmm (4.40-5.70); WHITE BLOOD COUNT 10.4 tho/cmm (4.0-10.0)
[2016-12-03 10:44] LABS: ANION GAP 12 mmol/L (0-20); BLOOD UREA NITROGEN 22 mg/dl (6-24); CALCIUM 8.5 mg/dl (8.5-10.5); CARBON DIOXIDE-VENOUS 29 mmol/L (22-32); CHLORIDE 104 mmol/l (96-110); CREATININE 1.16 mg/dl (0.60-1.30); GLUCOSE 146 mg/dL (70-110); SODIUM 141 mmol/L (135-145); eGFR VALUE FOR BLACK 76 mL/Min
--- NOTE | 2016-12-04 11:11 | NUR ---
DR. PORTER OFFICE CALLED PER PATIENT REQUEST TO CANCEL APPOINTMENT.
[2016-12-04] MEDS ORDERED: HYDROCODON-ACE1 EA16 PO (12:14)
[2016-12-04] MEDS ORDERED: CLEOCIN HCL300 M1 PO (13:39)
[2016-12-16] MEDS ORDERED: BACTRIM DS TAB1 EAC2 PO (11:09)
[2016-12-16] MEDS ORDERED: AUGMENTIN 875-1 EAC2 PO (11:09)
[2016-12-16] MEDS ORDERED: NOVOLOG100 UNITS/ SC (11:10)
[2016-12-16] MEDS ORDERED: LOVENOX40 MG/0.1 SC (11:10)
[2016-12-16] MEDS ORDERED: VITAMIN D31000 UNI3 PO (11:11)
[2016-12-16] MEDS ORDERED: PROTONIX40 M2 PO (11:11)
[2016-12-16] MEDS ORDERED: PRAVACHOL80 M1 PO (11:11)
[2016-12-16] MEDS ORDERED: NOVOLIN N100 UNIT/2 SC (11:12)
[2017-01-29] MEDS ORDERED: GLUCOPHAGE XR500 M1 PO (06:30)
[2017-04-21] MEDS ORDERED: PROZAC20 M3 PO (09:46)
== END 2016-12-04 14:49 | disposition home health service (06) | DRG 603 ==
LOC: WCC 09:26 → BURN 18:03
PROVIDERS: ADMIT Surgery
PROC: 0J9F0ZX Drainage of Left Upper Arm Subcutaneous Tissue and Fascia, Open Approach, Diagnostic (ICD-10-PCS; principal; 2016-12-02)
PROC: 05H533Z Insertion of Infusion Device into Right Subclavian Vein, Percutaneous Approach (ICD-10-PCS; 2016-12-02)
DX: L02.414 Cutaneous abscess of left upper limb (principal); I73.9 Peripheral vascular disease, unspecified; Z89.511 Acquired absence of right leg below knee; Z98.890 Other specified postprocedural states
CPT/HCPCS: C1751; J1200; J1815; J2270

== ENCOUNTER 2017-01-01 05:30 | Day surgery (SDC) | payer MEDICARE, OTHER ==
[~2017-01-01 05:30] MED LIST changes: +AUGMENTIN 875-1 EAC2 PO; +BACTRIM DS TAB1 EAC2 PO; +CLEOCIN HCL300 M1 PO; +LOVENOX40 MG/0.1 SC; +NOVOLOG100 UNITS/ SC; +PROTONIX40 M2 PO; +VITAMIN D31000 UNI3 PO
[2017-01-01 06:41] LABS: BASO % 1.1 % (0-2); BASO ABSOLUTE COUNT 0.1 tho/cmm (0.0-0.2); EOS % 9.9 % (0-7); EOSINOPHIL ABSOLUTE COUNT 0.7 tho/cmm (0.0-0.7); HCT-HEMATOCRIT 27.5 % (36.0-53.5); HGB-HEMOGLOBIN 8.9 gm/dl (13.5-17.0); IMMATURE GRANULOCYTES ABSOLUTE 0.02 tho/cmm (0-0.03); IMMATURE GRANULOCYTES PERCENT 0.3 % (0-0.3); LYMPH % 45.7 % (20-45); LYMPH ABSOLUTE COUNT 3.4 tho/cmm (0.8-4.5); MCH (MEAN CORPUSCULAR HGB) 28.6 pg (28.0-32.0); MCHC MEAN CORPUSCULAR HGB CONC 32.4 % (32.0-36.0); MCV (MEAN CELL VOLUME) 88.4 fl (82.0-96.0); MEAN PLATELET VOLUME 10.2 cmc (9.4-12.4); MONO % 9.1 % (0-12); MONOCYTE ABSOLUTE COUNT 0.7 tho/cmm (0.0-1.2); NEUTROPHIL ABSOLUTE COUNT 2.6 tho/cmm (1.6-8.0); NEUTROPHIL-AUTOMATED 2.6 tho/cmm (1.6-8.0); NEUTROPHILS % 33.9 % (40-80); PLATELET COUNT 196 tho/cmm (150-450); RED BLOOD COUNT 3.11 mil/cmm (4.40-5.70); WHITE BLOOD COUNT 7.5 tho/cmm (4.0-10.0)
[2017-01-01 06:49] LABS: ANION GAP 11 mmol/L (0-20); BLOOD UREA NITROGEN 29 mg/dl (6-24); CALCIUM 8.9 mg/dl (8.5-10.5); CARBON DIOXIDE-VENOUS 28 mmol/L (22-32); CHLORIDE 108 mmol/l (96-110); CREATININE 1.31 mg/dl (0.60-1.30); GLUCOSE 172 mg/dL (70-110); POTASSIUM 4.4 mmol/L (3.7-5.1); SODIUM 143 mmol/L (135-145); eGFR VALUE FOR BLACK 65 mL/Min
[2017-01-29] MEDS ORDERED: GLUCOPHAGE XR500 M1 PO (06:30)
[2017-04-21] MEDS ORDERED: PROZAC20 M3 PO (09:46)
== END 2017-01-01 11:40 ==
LOC: SRG 05:30 → SHSB 05:31 → PACU 08:36 → SHSB 08:59
PROVIDERS: Anesthesiology
PROC: 0HRKXK3 Replacement of Right Lower Leg Skin with Nonautologous Tissue Substitute, Full Thickness, External Approach (ICD-10-PCS; principal; 2017-01-01)
DX: S81.801A Unspecified open wound, right lower leg, initial encounter (principal); I10 Essential (primary) hypertension; I73.9 Peripheral vascular disease, unspecified; M19.90 Unspecified osteoarthritis, unspecified site; E11.40 Type 2 diabetes mellitus with diabetic neuropathy, unspecified; F41.9 Anxiety disorder, unspecified; F32.9 Major depressive disorder, single episode, unspecified; H91.90 Unspecified hearing loss, unspecified ear; Z79.4 Long term (current) use of insulin; Z79.899 Other long term (current) drug therapy; Z88.1 Allergy status to other antibiotic agents; Z87.891 Personal history of nicotine dependence; Z86.19 Personal history of other infectious and parasitic diseases; Z98.890 Other specified postprocedural states
CPT/HCPCS: J0171; J0690; J1580; J3370; Q4104